=== PATIENT | male | born 1970 | race African-American/Black ===

== ENCOUNTER 2019-03-15 12:49 | Emergency (ER) | payer SELFPAY ==
[2019-03-15 13:27] LABS: Absolute Lymphocytes (CBC) 2.6 K/uL (0.7-4.9); Basophils % 0.4 % (0-1.3); Eosinophils % 0.7 % (0-4.4); Hematocrit 44.6 % (39.6-49.0); Lymphocytes % 31.4 % (15.3-44.8); MPV 8.7 fL (7.6-11.3); Monocytes % 8.2 % (3.3-12.3); RBC Red Blood Cell Count 4.77 M/uL (4.33-5.43)
[2019-03-15 13:47] LABS: Albumin 4.4 g/dL (3.4-5.0); Bilirubin Direct 0.1 mg/dL (0-0.2); Bilirubin Total 0.7 mg/dL (0.2-1.0); Potassium 3.8 mmol/L (3.5-5.1); Protein, Total 8.5 g/dL (6.4-8.2)
[2019-03-15 13:49] LABS: Magnesium 2.2 mg/dL (1.8-2.4); Troponin (Emerg Dept Use Only) < 0.02 ng/mL (0.0-0.045)
--- NOTE | 2019-03-15 13:50 | RAD REPORT ---
EXAM DESCRIPTION: RAD - Chest Single View - 03/15/2019 1:43 pm CLINICAL HISTORY: heat exposure Chest pain. COMPARISON: No comparisons FINDINGS: Portable technique limits examination quality. The lungs are grossly clear. The heart is normal in size. No displaced fractures. IMPRESSION: No acute intrathoracic process suspected.
[2019-03-15 13:57] LABS: Protime INR 1.06
--- NOTE | 2019-03-15 15:21 | ER ---
Nurse's Notes [facility] Name: Henry Butts Age: 48 yrs Sex: Male : 1970 Arrival Date: 03/15/2019 Time: 12:40 Bed 5 Private MD: Diagnosis: Heat cramp;Heat fatigue, transient;Heat exhaustion, unspecified Presentation: 03/15 12:34 Acuity: DICK 2 sv 12:34 Presenting complaint: EMS states: pt has been working outside and today he was on a 2 sv story building flat roof working on an AC unit since 1000 and after about an hour he started feeling bad. On EMS arrival pt was laying supine, diaphoretic, and had muscle cramps. HR initially was in the 130s, IV started and fluids initiated. Took about 30 mins to extricate pt from the roof. HR went down to the 70s Temp-97.9. Transition of care: patient was not received from another setting of care. Onset of symptoms was March 15, 2019 at 11:00. Risk Assessment: Do you want to hurt yourself or someone else? Patient reports no desire to harm self or others. Initial Sepsis Screen: Does the patient meet any 2 criteria? No. Patient's initial sepsis screen is negative. Does the patient have a suspected source of infection? No. Patient's initial sepsis screen is negative. Care prior to arrival: Medication(s) given: Normal saline infusion, 500 mL, IV initiated. 20 GA, in the right antecubital area. 12:34 Method Of Arrival: EMS: [facility] Triage Assessment: 12:34 General: Appears in no apparent distress. uncomfortable, well developed, Behavior is sv cooperative, appropriate for age. Pain: Complains of pain in all over Pain currently is 5 out of 10 on a pain scale. Quality of pain is described as crampy, Pain began 2 hours ago. Is continuous. Neuro: Level of Consciousness is awake, alert, obeys commands, Oriented to person, place, time, situation, Moves all extremities. Speech is normal. Respiratory: Respiratory effort is even, unlabored, Respiratory pattern is regular, symmetrical. Derm: Skin is clammy, Skin is normal, Skin temperature is warm. Musculoskeletal: Range of motion: intact in all extremities. Historical: - Allergies: 16:55 No Known Allergies; sv - Home Meds: 16:55 None [Active]; sv - PMHx: 16:55 None; sv - PSHx: 16:55 None; sv - Immunization history:: Adult Immunizations up to date. - Social history:: Smoking status: Patient uses tobacco products, smokes one pack cigarettes per day. - Ebola Screening: : No symptoms or risks identified at this time. Screenin:40 Abuse screen: Denies threats or abuse. Denies injuries from another. Nutritional sv screening: No deficits noted. Tuberculosis screening: No symptoms or risk factors identified. Fall Risk None identified. Assessment: 13:30 Reassessment: Patient and/or family updated on plan of care and expected duration. Pain ss level reassessed. Patient is alert, oriented x 3, equal unlabored respirations, skin warm/dry/pink. Patient denies pain at this time. Patient states feeling better. Patient states symptoms have improved. Respiratory: Airway is patent Respiratory effort is even, unlabored. 14:37 Reassessment: Patient appears in no apparent distress at this time. Patient and/or ss family updated on plan of care and expected duration. Pain level reassessed. Patient is alert, oriented x 3, equal unlabored respirations, skin warm/dry/pink. Vital Signs: 12:43 BP 137 / 84; Pulse 66; Resp 16; Temp 98.1(O); Pulse Ox 100% on R/A; Pain 0/10; dh3 13:43 BP 141 / 94; Pulse 73; Resp 16; Pulse Ox 100% on R/A; dh3 14:13 BP 153 / 96; Pulse 66; Resp 16; Pulse Ox 99% on R/A; dh3 ED Course: 12:40 Patient arrived in ED. sv 12:40 Arm band placed on. sv 12:40 Patient has correct armband on for positive identification. Placed in gown. Bed in low sv position. Call light in reach. Side rails up X2. quality assurance monitor body on. Pulse ox on. NIBP on. Door closed. Head of bed elevated. 12:41 Dianne Xiao, KALEB is Primary Nurse. sv 12:41 Triage completed. sv 12:43 Rohit Roper MD is Attending Physician. kdr 13:04 EKG done, by lead quality technician. reviewed by Rohit Roper MD. dt2 13:18 Lab(s) recollected, by me, sent to lab. 3 13:50 XRAY Chest (1 view) In Process Unspecified. EDMS 14:36 No provider procedures requiring assistance completed. IV discontinued, intact, ss bleeding controlled, No redness/swelling at site. Pressure dressing applied. Administered Medications: No medications were administered Outcome: 14:29 Discharge ordered by . kdr 14:36 Discharged to home ambulatory. ss 14:36 Condition: improved 14:36 Discharge instructions given to patient, friend. 14:37 Patient left the ED. ss Signatures: Dispatcher [employer] EDMS Dianne Xiao, RN RN Rohit Esquivel MD MD kdr Smirch, Shelby, RN RN ss Herrera, Deanna 3 Clementina Weaver2
--- NOTE | 2019-03-15 15:23 | EDPHYS ---
Physician Documentation [facility] Name: Henry Butts Age: 48 yrs Sex: Male : 1970 Arrival Date: 03/15/2019 Time: 12:40 Bed 5 Private MD: ED Physician Rohit Roper HPI: 03/15 18:10 This 48 yrs old Black Male presents to ER via EMS with complaints of Heat Exposure. kdr 18:10 Had been working outside since about 10:00 AM and had not been drinking any water. He kdr normally works o. 19:13 Onset: The symptoms/episode began/occurred suddenly, just prior to arrival. Severity of kdr symptoms: At their worst the symptoms were in the emergency department the symptoms have improved. Gets cramps often after working outside since he seldom attempts to hydrate himself. The patient has not recently seen a physician. Historical: - Allergies: 16:55 No Known Allergies; sv - Home Meds: 16:55 None [Active]; sv - PMHx: 16:55 None; sv - PSHx: 16:55 None; sv - Immunization history:: Adult Immunizations up to date. - Social history:: Smoking status: Patient uses tobacco products, smokes one pack cigarettes per day. - Ebola Screening: : No symptoms or risks identified at this time. ROS: 19:13 Constitutional: Negative for fever, chills, and weight loss, Eyes: Negative for injury, kdr pain, redness, and discharge, Neck: Negative for injury, pain, and swelling, Cardiovascular: Negative for chest pain, palpitations, and edema, Respiratory: Negative for shortness of breath, cough, wheezing, and pleuritic chest pain, Abdomen/GI: Negative for abdominal pain, nausea, vomiting, diarrhea, and constipation, Back: Negative for injury and pain, : Negative for injury, bleeding, discharge, and swelling, Skin: Negative for injury, rash, and discoloration, Neuro: Negative for headache, weakness, numbness, tingling, and seizure activity. Psych: Negative for depression, anxiety, suicide ideation, homicidal ideation, and hallucinations, Allergy/Immunology: Negative for hives, rash, and allergies, Endocrine: Negative for neck swelling, polydipsia, polyuria, polyphagia, and marked weight changes, Hematologic/Lymphatic: Negative for swollen nodes, abnormal bleeding, and unusual bruising. 19:13 MS/extremity: Positive for Cramps in all extremities. Exam: 19:13 Constitutional: This is a well developed, well nourished patient who is awake, alert, kdr and in no acute distress. Head/Face: Normocephalic, atraumatic. Eyes: Pupils equal round and reactive to light, extra-ocular motions intact. Lids and lashes normal. Conjunctiva and sclera are non-icteric and not injected. Cornea within normal limits. Periorbital areas with no swelling, redness, or edema. Neck: Trachea midline, no thyromegaly or masses palpated, and no cervical lymphadenopathy. Supple, full range of motion without nuchal rigidity, or vertebral point tenderness. No Meningismus. Chest/axilla: Normal chest wall appearance and motion. Nontender with no deformity. No lesions are appreciated. Cardiovascular: Regular rate and rhythm with a normal S1 and S2. No gallops, murmurs, or rubs. Normal PMI, no JVD. No pulse deficits. Respiratory: Lungs have equal breath sounds bilaterally, clear to auscultation and percussion. No rales, rhonchi or wheezes noted. No increased work of breathing, no retractions or nasal flaring. Abdomen/GI: Soft, non-tender, with normal bowel sounds. No distension or tympany. No guarding or rebound. No evidence of tenderness throughout. Back: No spinal tenderness. No costovertebral tenderness. Full range of motion. Skin: Warm, dry with normal turgor. Normal color with no rashes, no lesions, and no evidence of cellulitis. MS/ Extremity: Pulses equal, no cyanosis. Neurovascular intact. Full, normal range of motion. Neuro: Awake and alert, GCS 15, oriented to person, place, time, and situation. Cranial nerves II-XII grossly intact. Motor strength 5/5 in all extremities. Sensory grossly intact. Cerebellar exam normal. Normal gait. Psych: Awake, alert, with orientation to person, place and time. Behavior, mood, and affect are within normal limits. Vital Signs: 12:43 BP 137 / 84; Pulse 66; Resp 16; Temp 98.1(O); Pulse Ox 100% on R/A; Pain 0/10; dh3 13:43 BP 141 / 94; Pulse 73; Resp 16; Pulse Ox 100% on R/A; dh3 14:13 BP 153 / 96; Pulse 66; Resp 16; Pulse Ox 99% on R/A; dh3 MDM: 14:29 Patient medically screened. kdr 19:13 Data reviewed: vital signs, nurses notes, lab test result(s), radiologic studies. kdr Counseling: I had a detailed discussion with the patient and/or guardian regarding: the historical points, exam findings, and any diagnostic results supporting the discharge/admit diagnosis, lab results, radiology results, the need for outpatient follow up. 03/15 12:41 Order name: Basic Metabolic Panel; Complete Time: 14:05 sv 03/15 12:41 Order name: CBC with Diff; Complete Time: 14: sv 03/15 12:41 Order name: LFT's; Complete Time: 14: sv 03/15 12:41 Order name: Magnesium; Complete Time: 14:05 sv 03/15 12:41 Order name: NT PRO-BNP; Complete Time: 14:05 sv 03/15 12:41 Order name: PT-INR; Complete Time: 14: sv 03/15 12:41 Order name: Troponin (emerg Dept Use Only); Complete Time: 14:05 sv 03/15 12:41 Order name: XRAY Chest (1 view); Complete Time: 14:05 sv 03/15 12:41 Order name: EKG; Complete Time: 12:52 sv 03/15 12:41 Order name: Cardiac monitoring; Complete Time: 13:18 sv 03/15 12:41 Order name: EKG - Nurse/Tech; Complete Time: 13:18 sv 03/15 12:41 Order name: IV Saline Lock; Complete Time: 13:18 sv 03/15 12:48 Order name: glucometer results - FOR PT WITH NO ID tw2 03/15 13:19 Order name: Diet Regular; Complete Time: 13:19 dh3 03/15 12:41 Order name: Labs collected and sent; Complete Time: 13:18 sv 03/15 12:41 Order name: O2 Per Protocol; Complete Time: 13:18 sv 03/15 12:41 Order name: O2 Sat Monitoring; Complete Time: 13:18 sv 03/15 13:05 Order name: Labs - recollect needed; Complete Time: 13:18 sg Administered Medications: No medications were administered Disposition: 03/15/19 14:29 Discharged to Home. Impression: Heat cramp, Heat fatigue, transient, Heat exhaustion, unspecified. - Condition is Stable. - Discharge Instructions: Fatigue, Heat Exhaustion Information, Dehydration, Adult, [id number], Rehydration, Adult. - Medication Reconciliation Form, Thank You Letter form. - Follow up: Private Physician; When: 2 - 3 days; Reason: If symptoms return, Further diagnostic work-up, Recheck today's complaints, Continuance of care, Re-evaluation by your physician. - Problem is new. - Symptoms are resolved. Signatures: Dispatcher [employer] Dianne Cleveland, RN RN Damon Hull RN RN sg Rittger, Kevin, MD MD kdr Therrien, Shelly, FLIGHT SERVICE AGENT-C FLIGHT SERVICE AGENT-Csnw Candis Collier RN RN ss Corrections: (The following items were deleted from the chart) 14:37 14:29 03/15/2019 14:29 Discharged to Home. Impression: Heat cramp; Heat fatigue, ss transient; Heat exhaustion, unspecified. Condition is Stable. Forms are Medication Reconciliation Form, Thank You Letter, Antibiotic Education, Prescription Opioid Use. Follow up: Private Physician; When: 2 - 3 days; Reason: If symptoms return, Further diagnostic work-up, Recheck today's complaints, Continuance of care, Re-evaluation by your physician. Problem is new. Symptoms are resolved. kdr
--- NOTE | 2019-03-15 16:00 | EKG ---
Test Date: 2019-03-15 Test Time: 12:49:20 Insurance Case Manager: LORA MEASUREMENT RESULTS: Intervals: Rate: 69 MD: 166 QRSD: 80 QT: 378 QTc: 405 Hubbard: P: 53 MD: 166 QRS: 71 T: 53 INTERPRETIVE STATEMENTS: Normal sinus rhythm Normal ECG No previous ECG available for comparison Electronically Signed On 03-15-19 15:59:44 CDT by Del Cates
== END 2019-03-15 14:37 | disposition home or self-care (01) ==
LOC: ER 12:49
DX: T67.2XXA Heat cramp, initial encounter (principal); T67.6XXA Heat fatigue, transient, initial encounter; T67.5XXA Heat exhaustion, unspecified, initial encounter; X58.XXXA Exposure to other specified factors, initial encounter; Y93.89 Activity, other specified; Y92.89 Other specified places as the place of occurrence of the external cause; Y99.8 Other external cause status; F17.210 Nicotine dependence, cigarettes, uncomplicated
CPT/HCPCS: 36415; 71045; 80048; 80076; 82962; 83735; 83880; 84484; 85025; 85610; 93005; 99284